=== PATIENT | female | born 1950 | race Caucasian/White ===

== ENCOUNTER → 2016-10-26 | Outpatient (CLI) | payer MEDICARE, OTHER ==
--- NOTE | ~2016-10-26 | NDGEN ---
PATIENT'S NAME: B[facility]EDICT [facility] AGE: 66 Y [address] ROOM: [place] [id number] LOCATION: [facility] ADMIT DATE: 10/26/2016 [facility] DISCHARGE DATE: FAMILY PHYSICIAN: PAUL ROSSI MD ATTENDING PHYSICIAN: RODRICK SIMENTAL PROCEDURE: NERVE CONDUCTION EMG OF ALL 4 LIMBS ALONG WITH EMG OF THE TONGUE. FURTHER NEEDLE EMG COULD NOT BE TOLERATED AT THE PARASPINAL MUSCLES. IN ADDITION, REPETITIVE NERVE STIMULATION TESTS WERE PERFORMED ON THE RIGHT TRAPEZIUS MUSCLES FOR RULING OUT EVIDENCE FOR NEUROMUSCULAR DISEASE INDICATION: This is a 66-year-old female patient who around June of 2016 noted that she had weakness and changes in her voice, that has become more noticeable since that time. She notices that she is weaker on her left side and even developed a weakness on dorsiflexion of the foot such that she has a partial drop foot. She also feels that the bulk of her muscles on the left side is a bit smaller. On physical exam today, she was noted to have atrophy of the tongue with tongue fasciculations noted. Occasional fasciculation noted in various areas, especially in to the intrinsic hand muscles, the ADM, noted on the left hand, as well as noting an isolated fasciculation in the forearm on the right side. The patient clearly has more left-sided weakness of the distal lower extremity, particularly at the foot. She has fatigability and give-way weakness to 4/5 power symmetrically in the bilateral deltoids, supraspinatus, and infraspinatus muscles. There is no intrinsic hand atrophy seen presently. She has demonstrable bulbar weakness on puffing out of the cheeks and diminished whistling ability. She has also weakness on sustaining flexion and extension of the neck. Nerve conduction studies were performed in the bilateral median and ulnar motor and sensory nerves as well as the bilateral peroneal motor and tibial motor and sural sensory nerves. The patient reports no history of ptosis. Voice is weak and hoarse at times, but variably stronger and clear at times as well. The motor nerve conduction studies showed an isolated finding of prolonged motor onset latencies seen in the left median nerve at the wrist at 6.9 msec with decreased amplitude to 2.6 mV. This was backed up by an isolated finding of prolonged sensory nerve action potential slowing at the left median sensory nerve, where peak onset latencies were delayed at 7.0 msec. There was nerve conduction velocity slowing at 25 m/sec. The rest of the motor and sensory nerve studies of the bilateral upper and lower extremities were within normal limits. The finding of both combined right median motor and right sensory motor would be PATIENT'S NAME: BENEDICT [facility] AGE: 66 Y [address] ROOM: [place] [id number] LOCATION: [facility] ADMIT DATE: 10/26/2016 Neurodiagnostics DISCHARGE DATE: FAMILY PHYSICIAN: PAUL ROSSI MD ATTENDING PHYSICIAN: RODRICK SIMENTAL a median neuropathy at the right wrist. Next, the needle EMG was performed. In the left upper extremity, there was evidence for increased insertional activity in all the muscles seen. Furthermore, there was noted fibrillation potentials and positive sharp waves in the deltoids, biceps, and triceps muscles as well as the pronator teres, abductor pollicis brevis, and rare fibrillations in the adductor digiti minimi muscle. There appeared to be full recruitment of motor unit action potentials at the left deltoid, but diminished at the triceps, biceps, pronator teres, abductor pollicis brevis muscle, and abductor digiti minimi muscle. Motor units were polyphasics and prolonged, especially at the triceps, biceps, adductor digiti minimi muscle, and abductor pollicis brevis muscle. Intermixed in the findings of spontaneous electrical activity, there was occasional fasciculation seen, even some increased motor unit action potential activity consistent with spasming at times, that would change with the patient's limb position, though no obvious visible spasm was seen in the arm in the left. The right upper extremity EMG was performed showing basically no evidence of any abnormal spontaneous electrical activity, however, the increased insertional activity was seen, occasional fasciculation with the muscle at rest was seen. There were no visible positive sharp waves or fibrillation potentials seen in the right upper extremity. The left lower extremity fibrillations and positive sharp waves were seen in the tibialis anterior muscle, but absent in the gastrocnemius muscle, but present at the quadriceps muscle on the left. There appeared to be decreased recruitment of motor unit action potentials of the tibialis anterior muscle and of the left medial gastrocnemius muscle. Motor unit action potentials and recruitment were large and polyphasic and generally slightly decreased in recruitment pattern. The needle was placed into the genioglossus muscle the patient sitting upright. I did not appreciate fibrillation potentials though there were clearly fasciculations seen visibly of the tongue with scaphoid atrophy of the tongue. There were fasciculations picked up and there was excess motor activity with fasciculations seen and decreased recruitment of motor unit action potentials. Because of toleration and the present evidenced abnormalities, the test could not proceed with right lower extremity needle study nor could the patient tolerate paraspinal muscle exam. Finally, repetitive nerve stimulation studies were performed to rule out evidence for neuromuscular junction abnormality with the patient having fatigability. It should be noted the patient had full blood tests that were negative for antibodies to acetylcholine receptor antibodies. Nonetheless, a repetitive nerve stimulation test was performed. There was normal findings on repetitive nerve stimulation of the accessory nerve at the trapezius muscle on the right. There is no decremental response both at rest as well as with 2 minutes of fatiguing exercises. The compound motor action potentials on a 10 of PATIENT'S NAME: [facility]EDICT [facility] AGE: 66 Y [address] ROOM: [place] [id number] LOCATION: [facility] ADMIT DATE: 10/26/2016 Neurodiagnostics DISCHARGE DATE: FAMILY PHYSICIAN: PAUL ROSSI MD ATTENDING PHYSICIAN: RODRICK SIMENTAL volitional pedal stimulation showed a normal response with no decrement in the compound motor action potential amplitude. Thus, this test was negative for abnormalities for a neuromuscular junction process. IMPRESSION: 1. 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 2. The patient has a clear abnormalities on needle EMG, consistent with abnormal spontaneous electrical activity and a mixed picture of fasciculations, generally decreased recruitment of motor unit action potentials, with motor units being large and somewhat polyphasic. Clinical picture of fasciculations was seen in the tongue, but fibrillation potentials did not necessarily seen at the genioglossus. The findings would be consistent with the patient's complaints of weakness, both from at limbs, particularly on the left side of the body with a motor neuron disease process. 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 There is, however, lacking evidence to support findings for hyperreflexia, thus upper motor neuron findings seem to be lacking here. Differential diagnosis would include spinal muscular atrophy as a primary diagnosis. Secondary diagnosis would include amyotrophic lateral sclerosis though the physical exam lacks upper motor neuron findings presently. 3. There was no evidence to support a neuromuscular disease process with normal repetitive nerve stimulation test, peripheral blood test finding, no antibodies to acetylcholine receptors. The patient will have a followup with us, which may include referral for further consult for specialists considering the findings on today's EMG pointing to possible motor neuron disease. MD ZONIA GARCIA/modl /[id number] dtt: 11/03/16 1702 , RODRICK SIMENTAL dtd: 10/27/16 0018
== END | disposition disaster alternative care site (69) ==
LOC: GNEU 13:43
DX: R53.1 Weakness (principal); G62.9 Polyneuropathy, unspecified; R94.131 Abnormal electromyogram [EMG]